=== PATIENT | male | born 1995 | race Caucasian/White ===

== ENCOUNTER 2021-01-26 21:28 | Outpatient (CLI) | payer SELFPAY | END 2021-01-26 21:29 | disposition EMS.NT | LOC: EMS 21:28 | DX: T23.222A Burn of second degree of single left finger (nail) except thumb, initial encounter (principal); T23.021A Burn of unspecified degree of single right finger (nail) except thumb, initial encounter; X15.8XXA Contact with other hot household appliances, initial encounter; Y93.G3 Activity, cooking and baking; Y92.009 Unspecified place in unspecified non-institutional (private) residence as the place of occurrence of the external cause ==

== ENCOUNTER 2021-09-12 14:07 | Emergency (ER) | payer MEDICAID ==
[2021-09-12 14:16] VITALS: BP 121/62
--- NOTE | 2021-09-12 14:39 | ED Physician Documentation ---
History of Present Illness - Stated complaint Stated Complaint: POSSIBLE WORMS - Chief complaint Chief Complaint: General - History obtained from History obtained from: Patient - Additonal information Additional information: The dog has worms. he has noticed small white worms in her stool. Otherwise asymptomatic. Review of Systems Constitutional: denies: Fever, Chills GI: denies: Abdominal Pain, Constipation, Diarrhea PD PAST MEDICAL HISTORY - Past Medical History Cardiovascular: None Respiratory: None Endocrine/Autoimmune: None GI: None : None HEENT: None Psych: Anxiety Musculoskeletal: Chronic back pain Derm: None - Past Surgical History Past Surgical History: Yes Ortho: Other - Present Medications Home Medications: Ambulatory Orders Medication Instructions Recorded Confirmed Hydrocodone/Acetaminophen 1 - 2 each PO Q6H PRN #15 tablet 10/21/14 [Hydrocodon-Acetaminophen 5-325] Albendazole 2 tab PO ONCE #4 tablet 09/12/21 - Allergies Allergies/Adverse Reactions: Allergies Allergy/AdvReac Type Severity Reaction Status Date / Time cefprozil [From Cefzil] Allergy Severe Edema Verified 09/12/21 14:16 - Social History Does the pt smoke?: Yes Smoking Status: Current every day smoker Does the pt drink ETOH?: Yes Does the pt have substance abuse?: No - Immunizations Immunizations are current?: Yes Immunizations: TDAP >10years/unknown - POLST Patient has POLST: No PD ED PE NORMAL - Vitals Vital signs reviewed: Yes - General General: Alert and oriented X 3, No acute distress - Derm Derm: Normal color, Warm and dry - Neuro Neuro: Alert and oriented X 3, Normal speech Results - Vitals Vitals: Vital Signs - 24 hr 09/12/21 14:15 Temperature 36.9 C Heart Rate 77 Respiratory 16 Rate Blood Pressure 121/62 O2 Saturation 95 Oxygen O2 Source Room air Departure - Departure Disposition: 01 Home, Self Care Clinical Impression: Enterobiasis Condition: Good Record reviewed to determine appropriate education?: Yes Instructions: ED Enterobiasis Prescriptions: Albendazole 2 tab PO ONCE #4 tablet Comments: I sent your prescriptions electronically to [facility] in [place].
== END 2021-09-12 14:48 | disposition home or self-care (01) ==
LOC: ED 14:07
DX: B80 Enterobiasis (principal); F17.200 Nicotine dependence, unspecified, uncomplicated
CPT/HCPCS: 99281; 99282

== ENCOUNTER 2021-12-19 23:55 | Emergency (ER) | payer MEDICAID ==
[2021-12-20 00:06] VITALS: BP 126/72
[2021-12-20] MEDS ORDERED: SULFAMETH/TRIMETH DS 800/160 MG TABLET PO ONE (01:35)
[2021-12-20] MEDS ORDERED: oxyCODONE 5 MG TABLET ONE (01:35)
[2021-12-20] MEDS ORDERED: methocarbamoL 500 MG TABLET PO ONE (01:36)
[2021-12-20] MEDS ORDERED: oxyCODONE/ACET 5/325 Prepack 4 PO ONE (01:36)
--- NOTE | 2021-12-20 03:51 | ED Physician Documentation ---
PD HPI HEENT - Stated complaint Stated Complaint: R EAR PX,NECK PX - Chief complaint Chief Complaint: Heent - History obtained from History obtained from: Patient - History of Present Illness Timing - onset: Yesterday Timing - duration: Days (2) Timing - details: Gradual onset, Still present, Constant Location: Right ear, Left ear, Other (neck) Worsens: Swalllowing, Noise, Position (lying on either side causes worse ear pain on that side.) Associated symptoms: Congestion, Other (posterior neck pain with movement.). No: Fever, Facial swelling Similar symptoms before: Has not had sx before Review of Systems Constitutional: reports: Chills, Myalgias Eyes: denies: Decreased vision, Photophobia Ears: reports: Ear pain (both), Drainage/discharge (ribht). denies: Loss of hearing (sensitive to noise actually.) Nose: reports: Congestion. denies: Rhinorrhea / runny nose Throat: denies: Sore throat Cardiac: denies: Chest pain / pressure Respiratory: denies: Cough GI: reports: Nausea. denies: Vomiting, Diarrhea Musculoskeletal: reports: Neck pain (feeling painful neck muscles with ROM.) Neurologic: denies: Focal weakness, Numbness, Altered mental status, Headache PD PAST MEDICAL HISTORY - Past Medical History Past Medical History: Yes Cardiovascular: None Respiratory: None Endocrine/Autoimmune: None GI: None : None HEENT: None Psych: Anxiety Musculoskeletal: Chronic back pain Derm: None - Past Surgical History Past Surgical History: Yes Ortho: Other - Present Medications Home Medications: Ambulatory Orders Medication Instructions Recorded Confirmed No Known Home Medications 12/20/21 12/20/21 - Allergies Allergies/Adverse Reactions: Allergies Allergy/AdvReac Type Severity Reaction Status Date / Time cefprozil [From Cefzil] Allergy Severe Edema Verified 12/20/21 00:06 - Social History Does the pt smoke?: Yes Smoking Status: Current every day smoker Does the pt drink ETOH?: Yes Does the pt have substance abuse?: No - Immunizations Immunizations are current?: Yes Immunizations: TDAP >10years/unknown - POLST Patient has POLST: No PD ED PE NORMAL - Vitals Vital signs reviewed: Yes - General General: Alert and oriented X 3, Well developed/nourished, Other (holding neck guardedly stiff and straight. ) - HEENT HEENT: PERRL, EOMI, Moist mucous membranes, Pharynx benign, Dentition benign. No: Ears normal (both ears have redness of canals and swelling, right more than left. Right TM is also red with swelling. No periauricular redness. there is postauricular and posterior SCM small tender lymph nodes. ) - Neck Neck: No: Supple, no meningeal sign (neck muscle soreness and spasm jody right trapezius. Does not seem meningitic as much as torticollus. ) - Cardiac Cardiac: RRR, No murmur - Respiratory Respiratory: Clear bilaterally - Derm Derm: Normal color, Warm and dry, No rash - Extremities Extremities: No tenderness to palpate, Normal ROM s pain, No edema, No calf tenderness / cord - Neuro Neuro: Alert and oriented X 3, No motor deficit, No sensory deficit, Normal speech Results - Vitals Vitals: Vital Signs - 24 hr 12/20/21 00:02 Temperature 37.6 C Heart Rate 83 Respiratory 18 Rate Blood Pressure 126/72 O2 Saturation 98 Oxygen O2 Source Room air PD MEDICAL DECISION MAKING - ED course Complexity details: considered differential (no headache and having neck muscle stiffness and not as much a reall meningitic picture. Has OE/OM with canal cellulitic type picture. ), d/w patient Departure - Departure Disposition: 01 Home, Self Care Clinical Impression: Cellulitis of right ear canal, Torticollis, acute Otitis externa Qualifiers: Otitis externa type: diffuse Chronicity: acute Laterality: bilateral Qualified Code(s): H60.313 - Diffuse otitis externa, bilateral Condition: Stable Record reviewed to determine appropriate education?: Yes Discharge Date/Time: 12/20/21 01:46
== END 2021-12-20 01:46 | disposition home or self-care (01) ==
LOC: ED 23:55
DX: H60.11 Cellulitis of right external ear (principal); H60.313 Diffuse otitis externa, bilateral; M43.6 Torticollis; F17.200 Nicotine dependence, unspecified, uncomplicated
CPT/HCPCS: 99282; A9270

== ENCOUNTER 2022-02-24 08:36 | Emergency (ER) | payer MEDICAID ==
[2022-02-24 08:47] VITALS: BP 116/65
[2022-02-24] MEDS ORDERED: NIRMATRELVIR/RITONAVIR PREPACK PO STA (09:00)
[2022-02-24] MEDS ORDERED: IBUPROFEN 800 MG TABLET PO STA (09:00)
--- NOTE | 2022-02-24 09:04 | ED Physician Documentation ---
History of Present Illness - Stated complaint Stated Complaint: C+ HEAD/BODY PX - Chief complaint Chief Complaint: General - History obtained from History obtained from: Patient, Family - History of Present Illness Timing: Last night Pain level max: 7 Pain level now: 7 - Additonal information Additional information: 26-year-old male presents to the emergency department stating he began to have upper respiratory symptoms yesterday, today has fever, body aches, cough, rhinorrhea. He states that he took a COVID test this morning that was positive. He took NyQuil this morning without relief. Nothing makes it better or worse. No vomiting. No abdominal pain. Review of Systems Constitutional: reports: Chills, Myalgias. denies: Fever Ears: denies: Ear pain GI: denies: Nausea, Vomiting Skin: denies: Rash Musculoskeletal: denies: Neck pain Neurologic: reports: Headache (Gradual onset, states feels like a migraine.) PD PAST MEDICAL HISTORY - Past Medical History Cardiovascular: None Respiratory: None Endocrine/Autoimmune: None GI: None : None HEENT: None Psych: Anxiety Musculoskeletal: Chronic back pain Derm: None - Past Surgical History Past Surgical History: Yes Ortho: Other - Present Medications Home Medications: Ambulatory Orders Medication Instructions Recorded Confirmed No Known Home Medications 12/20/21 02/24/22 - Allergies Allergies/Adverse Reactions: Allergies Allergy/AdvReac Type Severity Reaction Status Date / Time cefprozil [From Cefzil] Allergy Severe Edema Verified 02/24/22 08:46 - Social History Does the pt smoke?: Yes Smoking Status: Current every day smoker Does the pt drink ETOH?: Yes Does the pt have substance abuse?: No - Immunizations Immunizations are current?: Yes Immunizations: TDAP >10years/unknown - POLST Patient has POLST: No PD ED PE NORMAL - Vitals Vital signs reviewed: Yes - General General: Alert and oriented X 3, No acute distress, Well developed/nourished - HEENT HEENT: PERRL, Moist mucous membranes - Neck Neck: Supple, no meningeal sign - Cardiac Cardiac: RRR, Strong equal pulses - Respiratory Respiratory: No respiratory distress, Clear bilaterally - Abdomen Abdomen: Soft, Non tender, Non distended - Back Back: No spinal TTP - Derm Derm: Warm and dry, No rash - Extremities Extremities: No edema - Neuro Neuro: Alert and oriented X 3 - Psych Psych: Normal mood, Normal affect Results - Vitals Vitals: Vital Signs - 24 hr 02/24/22 08:44 Temperature 37.1 C Heart Rate 101 H Respiratory 14 Rate Blood Pressure 116/65 O2 Saturation 98 Oxygen O2 Source Room air PD MEDICAL DECISION MAKING - ED course Complexity details: considered differential, d/w patient ED course: 26-year-old male tested positive for COVID this morning. He is requesting Paxlovid. Will prescribe this for him. We will also continue Motrin and Tylenol at home for body aches. Patient is otherwise healthy. No significant medical history. Not on any medications at home. Eating and drinking without difficulty. Patient counseled regarding signs and symptoms for which I believe and urgent re-evaluation would be necessary. Patient with good understanding of and agreement to plan and is comfortable going home at this time This document was made in part using voice recognition software. While efforts are made to proofread this document, sound alike and grammatical errors may occur. Departure - Departure Disposition: 01 Home, Self Care Clinical Impression: COVID-19 Condition: Good Instructions: ED Viral Syndrome Follow-Up: Your,doctor in 1 week [Other] Comments: Please follow-up with your doctor for further care. We have started you on Paxlovid today. You can continue Motrin, Tylenol as needed at home for body aches and or fevers. Drink plenty of fluids. Isolation precautions for COVID Day 0 is your first day of symptoms or a positive viral test. Day 1 is the first full day after your symptoms developed or your test specimen was collected. If you have COVID-19 or have symptoms, isolate for at least 5 days. IF YOU: Tested positive for COVID-19 or have symptoms, regardless of vaccination status Stay home for at least 5 days Stay home for 5 days and isolate from others in your home. Wear a well-fitting mask if you must be around others in your home. Do not travel. Ending isolation if you had symptoms End isolation after 5 full days if you are fever-free for 24 hours (without the use of fever-reducing medication) and your symptoms are improving. Ending isolation if you did NOT have symptoms End isolation after at least 5 full days after your positive test. If you got very sick from COVID-19 or have a weakened immune system You should isolate for at least 10 days. Consult your doctor before ending isolation. Take precautions until day 10 Wear a well-fitting mask Wear a well-fitting mask for 10 full days any time you are around others inside your home or in public. Do not go to places where you are unable to wear a mask. Do not travel Do not travel until a full 10 days after your symptoms started or the date your positive test was taken if you had no symptoms. Avoid being around people who are more likely to get very sick from COVID-19.
== END 2022-02-24 09:32 | disposition home or self-care (01) ==
LOC: ED 08:36
DX: U07.1 COVID-19 (principal); F17.200 Nicotine dependence, unspecified, uncomplicated
CPT/HCPCS: 99282; A9270; J3490

== ENCOUNTER 2022-08-01 07:05 | Outpatient (CLI) | payer MEDICAID ==
[2022-08-01 14:38] LABS: BASOPHILS % (AUTO) 0.2 %; EOSINOPHILS # (AUTO) 0.1 10^3/uL (0.0-0.7); EOSINOPHILS % (AUTO) 0.8 %; HCT - HEMATOCRIT 46.5 % (42.0-52.0); HGB - HEMOGLOBIN 15.7 g/dL (14.0-18.0); LYMPHOCYTES % (AUTO) 24.6 %; MEAN CORPUSCULAR HEMOGLOBIN 32.1 pg (27.0-31.0); MEAN CORPUSCULAR HGB CONC 33.8 g/dL (32.0-36.0); MEAN CORPUSCULAR VOLUME 95.1 fL (80.0-94.0); MONOCYTES # (AUTO) 0.7 10^3/uL (0.0-1.0); MONOCYTES % (AUTO) 8.1 %; NEUTROPHILS # (AUTO) 5.5 10^3/uL (1.5-6.6); NEUTROPHILS % (AUTO) 66.1 %; PLT - PLATELET COUNT 231 10^3/uL (130-450); RED BLOOD COUNT 4.89 10^6/uL (4.70-6.10); RED CELL DISTRIBUTION WIDTH 12.4 % (12.0-15.0); WHITE BLOOD COUNT 8.3 x10^3/uL (4.8-10.8)
[2022-08-01 14:57] LABS: ALBUMIN 4.1 g/dL (3.2-5.5); ALBUMIN/GLOBULIN RATIO 1.5 (1.0-2.2); ALKALINE PHOSPHATASE 68 IU/L (42-121); ALT ALANINE AMINOTRANSFERASE 13 IU/L (10-60); AST ASPARTATE AMINOTRANSFERASE 24 IU/L (10-42); BILIRUBIN,TOTAL 0.6 mg/dL (0.2-1.0); BUN - BLOOD UREA NITROGEN 13 mg/dL (6-20); CALCIUM 9.1 mg/dL (8.5-10.3); CARBON DIOXIDE - CO2 27 mmol/L (21-32); CHLORIDE 106 mmol/L (101-111); CHOLESTEROL 137 mg/dL; CREATININE 0.7 mg/dL (0.6-1.2); GFR - MDRD 135 (>89); GLUCOSE 87 mg/dL (70-100); HDL CHOLESTEROL 68 mg/dL; LDL CHOLESTEROL,CALCULATED 48 mg/dL; LDL/HDL RATIO 0.7 (<3.6); POTASSIUM 3.8 mmol/L (3.5-5.0); SODIUM 141 mmol/L (135-145); TOTAL PROTEIN 6.9 g/dL (6.7-8.2); TRIGLYCERIDES 105 mg/dL; VLDL CHOLESTEROL 21 mg/dL
[2022-08-01 15:12] LABS: THYROID STIMULATING HORMONE 1.55 uIU/mL (0.34-5.60)
== END 2022-08-01 07:06 | disposition home or self-care (01) ==
LOC: LAB.S 07:05
PROVIDERS: ATTEND Nurse Practitioner Family
DX: F10.20 Alcohol dependence, uncomplicated (principal)
CPT/HCPCS: 36415; 80053; 80061; 80320; 80349; 81599; 83721; 84443; 85025